=== PATIENT | female | born 1985 | race Caucasian/White ===

== ENCOUNTER 2016-07-19 17:27 | Emergency (ER) | payer OTHER ==
[~2016-07-19] VITALS: Ht 167.6 cm; Wt 59.0 kg
--- NOTE | 2016-07-19 17:47 | ED SYNCOPE COMPLAINT ---
History of Present Illness General Chief Complaint: Syncope and Near-Syncope Stated Complaint: S/P FALL / SYNCOPE THIS AM SENT IN [facility] CT AND LAB Source: patient, family, old records Exam Limitations: no limitations Vital Signs & Intake/Output Vital Signs & Intake/Output Vital Signs Date Time Temp Pulse Resp B/P Pulse O2 O2 Flow FiO2 Ox Delivery Rate 07/19 1917 97.5 70 18 113/67 100 07/19 1827 99 07/19 1745 99.1 81 16 121/75 100 Room Air Allergies Coded Allergies: MDX - PCN (penicillin) (PCN (PENICILLIN)) (RASH 05/08/12) Triage Note: PT STATES SHE PASSED OUT AND FELL DOWN STAIRS. PT DENIES CHEST PAIN DURING EPISODE. PT STATES SHE KIND OF KNEW WHAT WAS GOING ON DURING THE ENTIRE EPISODE AND FEELS LIKE SHE DID NOT HIT HER HEAD. Triage Nurses Notes Reviewed? yes Timing: single episode today Precipitating Factors: none Context: became dizzy/fainted Associated Symptoms: HEADACHE : No Patient currently breastfeeds: No HPI: This is a 30-year-old female with history of asthma reflux presents with her parents for evaluation after she had a questional syncopal episode this morning. The patient states that approximate 10 hours ago she got up out of bed to walk and go to the bathroom and take a shower first thing this morning. The patient states she got up she began to feel faint and proceeded to fall down the stairs. Patient is unsure of LOC however states that approximate retirement down the stairs she knew she was falling. Her mother was at the bases stairs when she did fall and states that she was immediately awake immediately after went right back up the stairs and took a shower. There is no slurred speech no change in vision. She states approximate hour later she began to have a frontal headache that she is had all day 3 out of 10 aching nonradiating which she has not taken anything. The patient denies any prodromal chest pain palpitations shortness of breath abdominal pain. She denies any other injuries from the fall no neck or back pain no arm or leg pain numbness or tingling no vision changes. No tinnitus dizziness or lightheadedness at this time. The patient reports a history of a similar episode and near syncopal episode in the shower approximately a month ago. Both episodes have occurred prior to her menses beginning. She denies any abnormal heavy vaginal bleeding. She denies chance of she does not smoke she reports to social alcohol use however none recently. No family history of sudden cardiac disease. (MARIN COTO) Past History Travel History Traveled to [place] past 21 day No Medical History Any Pertinent Medical History? see below for history Respiratory: asthma Gastrointestinal: GERD Surgical History Surgical History: none Psychosocial History What is your primary language Armenian Tobacco Use: Never used ETOH Use: occasional use Illicit Drug Use: denies illicit drug use Family History Hx Contributory? No (MARIN COTO) Review of Systems Review of Systems Constitutional: Reports: see HPI. All Other Systems: Reviewed and Negative Comments Review of systems: See HPI, All other systems negative. Constitutional, no chills no fever, no malaise HEENT: No visual changes no sore throat no congestion, no ear pain Cardiovascular: No chest pain , no palpitation , Skin, no rashes, no change in skin Respiratory: No dyspnea no cough no sputum GI: No nausea no vomiting, no diarrhea : No dysuria Muscle skeletal: No joint pain, no back pain, no neck pain, Neurologic: No numbness no confusion, headache Psych: No stress Heme/endocrine: No bruising no bleeding Immunology: No lymphadenopathy (MARIN COTO) Physical Exam Physical Exam General Appearance: well developed/nourished, no apparent distress, alert, awake Cranial Nerves: normal hearing, normal speech, PERRL Comments: Well-developed well-nourished person in no acute distress HEENT: Normal EENT exam; PERRL, EOMI, no nystagmus. HEAD is atraumatic. moist mucous membranes. No hemotympanum no raccoon eyes scalp is atraumatic nontender no scalp hematoma Neck: Supple, no midline or paracervical tenderness normal range of motion without pain or tenderness Back: Nontender, no CVA tenderness. Full range of motion Cardiovascular: Regular rate and rhythms no murmurs rubs or gallops, normal JVP Respiratory: Chest nontender.There were no bony deformities, no asymmetry. No respiratory distress. Patient speaking in full complete sentences. Breath sounds clear to auscultation bilaterally: NO W/R/R Abdomen: Soft, nontender nondistended, no appreciable organomegaly. Normal bowel sounds. No rebound/guarding, No appreciable enlargement of the abdominal aorta Extremity: No edema, full range of motion of extremities, normal and equal pulses bilaterally, 5 out of 5 strength noted to bilateral upper and lower extremities Neuro: Alert oriented x3, motor sensory normal, cranial nerves II through XII grossly intact. There were no obvious focal neurologic abnormalities. Skin: No appreciable rash on exposed skin, skin is warm and dry. Psych: Mood and affect is normal, memory and judgment is normal. Core Measures ACS in differential dx? Yes CVA/TIA Diagnosis: No Severe Sepsis Present: No Septic Shock Present: No (JANKI BRIDGES,MARIN) Progress Differential Diagnosis: AMI, aortic valve, hyperventilation, orthostatic syncope , pericardial tamponade, pulmonary embolus, ARRHYTHMIA, HYPOGLYCEMIA, , DEHYDRATION, ELECTROLYTE ABNORMALITY Plan of Care: Orders Procedure Date/time Status MISTAKE 07/19 1820 Active URINE 07/19 1812 Complete URINALYSIS 07/19 1812 Complete Telemetry/Metal Spinner 07/19 175 Active MAGNESIUM 07/19 175 Complete HUMAN BETA HCG SCREEN 07/19 1751 Complete D-DIMER 07/19 1751 Complete COMPREHENSIVE METABOLIC PANEL 07/19 1751 Complete CBC WITHOUT DIFFERENTIAL 07/19 1751 Complete EKG 07/19 172 Active Laboratory Tests 07/19/161828: Anion Gap 11, Estimated GFR > 60, BUN/Creatinine Ratio 21.4, Glucose 96, Calcium 10.0, Magnesium 1.9, Total Bilirubin 0.5, AST 22, ALT 30, Alkaline Phosphatase 56, Total Protein 8.3 H, Albumin 4.8, Globulin 3.5, Albumin/Globulin Ratio 1.4, Total Beta HCG NEGATIVE, D-Dimer < 200 07/19/161817: Urine Color STRAW, Urine Clarity CLEAR, Urine pH 6.0, Ur Specific [place] 1.010, Urine Protein NEG, Urine Ketones NEG, Urine Nitrite NEG, Urine Bilirubin NEG, Urine Urobilinogen 0.2, Ur Leukocyte Esterase NEG, Ur Microscopic EXAM NOT REQUIRED, Urine Hemoglobin NEG, Urine Glucose NEG, Urine Test NEGATIVE 07/19/161755: CBC w Diff NO MAN DIFF REQ, RBC 4.23, MCV 88.1, MCH 29.4, RDW 13.6, MPV 8.2, Gran % 50.5, Lymphocytes % 39.9, Monocytes % 6.4, Eosinophils % 2.2, Basophils % 1.0, Absolute Granulocytes 5.1, Absolute Lymphocytes 4.0 H, Absolute Monocytes 0.6, Absolute Eosinophils 0.2, Absolute Basophils 0.1, PUBS MCHC 33.4 Labs ordered old records reviewed patient is declining anything for headache would offer. chest x-ray ordered. Case and EKG reviewed with Dr. Bowling. On repeat evaluation patient is resting complain no apparent distress. Case and EKG were reviewed and a copy of the EKG was sent to Dr. Villa who after evaluating agrees with plan that the patient can go home he advised to have the patient call his office tomorrow morning to be seen in set up for a Holter and echocardiogram. I discussed with the patient and her family at the all of her lab results CT chest x-ray finding and EKG need for close follow-up on repeat evaluation patient reports her headache has resolved without any medication. They understand plan and they feel comfortable with plan, she will return anytime sooner with any concerns, orthostatics are negative (JANKI BRIDGES,MARIN) Diagnostic Imaging: Viewed by Me: Radiology Read, CT Scan. Discussed w/RAD: Radiology Read, CT Scan. Radiology Impression: PATIENT: ANA MARIA TOLEDO PRESENT AGE: 30 PATIENT ACCOUNT NO: [id number] : 87 LOCATION: [facility] ORDERING PHYSICIAN: MARIN BRIDGES SERVICE DATE: 07/19/16 EXAM TYPE: CAT - CT HEAD WO IV CONTRAST EXAMINATION: CT HEAD WITHOUT CONTRAST CLINICAL INFORMATION: Fall. Possible syncope. Assess for intracranial hemorrhage. COMPARISON: None. TECHNIQUE: Contiguous axial imaging was performed from the skull base to vertex without intravenous administration of contrast. DLP: 529.16 mGy-cm. FINDINGS: There is no evidence of acute intracranial hemorrhage or territorial infarction. No abnormal mass effect or midline shift is seen. Cochran to white matter differentiation is well preserved. No extra-axial fluid collections are identified. The ventricles are normal in size. There is no abnormal attenuation within the brain parenchyma. The osseous structures and soft tissues are normal; there are no fractures or large scalp contusions. The mastoid air cells and visualized portions of the paranasal sinuses are well aerated. IMPRESSION: 1. There are no acute intracranial findings. DICTATED BY: JAMES FOSTER MD DATE/TIME DICTATED:07/19/161910 BLENDING TANK TENDER HELPER:ANG DATE/TIME TRANSCRIBED:07/19/161910 CONFIDENTIAL, DO NOT COPY WITHOUT APPROPRIATE AUTHORIZATION. <Electronically signed in Other Vendor System> SIGNED BY: JAMES FOSTER MD 07/19/161918, PATIENT: ANA MARIA TOLEDO PRESENT AGE: 30 PATIENT ACCOUNT NO: [id number] : 87 LOCATION: [facility] ORDERING PHYSICIAN: MARIN BRIDGES SERVICE DATE: 07/19/16 EXAM TYPE: RAD - XRY-CHEST XRAY, PA AND LATERAL EXAMINATION: XR CHEST CLINICAL INFORMATION: Syncope. Assess for cardiomegaly. COMPARISON: None TECHNIQUE: AP and lateral views of the chest were obtained. FINDINGS: The lung marquez are well expanded and appear clear bilaterally. The cardiac silhouette is normal. There are no pleural effusions or pneumothorax. The central pulmonary vasculature is normal. The hilar regions appear normal. There is a mild dextroscoliosis in the thoracolumbar spine. There are no acute osseous findings. IMPRESSION: 1. There are no acute cardiopulmonary findings. DICTATED BY: JAMES FOSTER MD DATE/TIME DICTATED:07/19/161904 BLENDING TANK TENDER HELPER:ANG DATE/TIME TRANSCRIBED:1904 CONFIDENTIAL, DO NOT COPY WITHOUT APPROPRIATE AUTHORIZATION. < Electronically signed in Other Vendor System> SIGNED BY: JAMES FOSTER MD 1908 Initial ED EKG: NORMAL SINUS AT 90, t-WAVE INVERSIONS NOTED TO LEAD 3 AND Avf AND NONSPECIFIC st SEGMENT CHANGES NOTED TO THE LATERAL LEADS AXIS Rhythm Strip: normal sinus rhythm (MARIN COTO) Departure Departure Time of Disposition: 1957 Disposition: HOME OR SELF CARE Condition: Stable Clinical Impression Primary Impression: Syncope Referrals: KATARZYNA HOOKER,DUGLAS VILLA MD,W AMADEO Additional Instructions: Follow-up with your primary care physician as well as dog control officer Dr. Villa tomorrow. Return to emergency room at anytime sooner with any concerns Departure Forms: Customer Survey General Discharge Information (MARIN COTO) PA/SIDE PANEL PADDER Co-Sign Statement Statement: ED Attending supervision documentation- [] I saw and evaluated the patient. I have also reviewed all the pertinent lab results and diagnostic results. I agree with the findings and the plan of care as documented in the PA's/SIDE PANEL PADDER's documentation. [X] I have reviewed the ED Record and agree with the PA's/SIDE PANEL PADDER's documentation. [] Additions or exceptions (if any) to the PAs/SIDE PANEL PADDER's note and plan are summarized below: [] (JUAN HOOKER,JUAN)
[2016-07-19 18:07] LABS: ABSOLUTE BASOPHIL COUNT 0.1 /CUMM (0.0-0.2); ABSOLUTE EOSINOPHIL COUNT 0.2 /CUMM (0.0-0.7); ABSOLUTE GRANULOCYTE CT 5.1 /CUMM (1.4-6.5); ABSOLUTE MONOCYTE COUNT 0.6 /CUMM (0.10-0.60); EOSINOPHIL % 2.2 % (0-5); GRANULOCYTE % 50.5 % (42.2-75.2); HEMATOCRIT 37.3 % (37-47); MEAN CORPUSCULAR HGB 29.4 PG (27.0-31.0); MEAN CORPUSCULAR HGB CONC 33.4 G/DL (33.0-37.0); MEAN CORPUSCULAR VOLUME 88.1 FL (81.0-99.0); MEAN PLATELET VOLUME 8.2 FL (7.4-10.4); PLATELET COUNT 399 /CUMM (130-400); RBC DISTRIBUTION WIDTH 13.6 % (11.5-14.5); RED BLOOD CELL CT 4.23 /CUMM (4.20-5.40)
--- NOTE | 2016-07-19 19:09 | RADIOLOGY REPORT ---
EXAMINATION: XR CHEST CLINICAL INFORMATION: Syncope. Assess for cardiomegaly. COMPARISON: None TECHNIQUE: AP and lateral views of the chest were obtained. FINDINGS: The lung marquez are well expanded and appear clear bilaterally. The cardiac silhouette is normal. There are no pleural effusions or pneumothorax. The central pulmonary vasculature is normal. The hilar regions appear normal. There is a mild dextroscoliosis in the thoracolumbar spine. There are no acute osseous findings. IMPRESSION: 1. There are no acute cardiopulmonary findings.
[2016-07-19 19:18] VITALS: BP 113/67
--- NOTE | 2016-07-19 19:19 | CT SCAN REPORT ---
EXAMINATION: CT HEAD WITHOUT CONTRAST CLINICAL INFORMATION: Fall. Possible syncope. Assess for intracranial hemorrhage. COMPARISON: None. TECHNIQUE: Contiguous axial imaging was performed from the skull base to vertex without intravenous administration of contrast. DLP: 529.16 mGy-cm. FINDINGS: There is no evidence of acute intracranial hemorrhage or territorial infarction. No abnormal mass effect or midline shift is seen. Cochran to white matter differentiation is well preserved. No extra-axial fluid collections are identified. The ventricles are normal in size. There is no abnormal attenuation within the brain parenchyma. The osseous structures and soft tissues are normal; there are no fractures or large scalp contusions. The mastoid air cells and visualized portions of the paranasal sinuses are well aerated. IMPRESSION: 1. There are no acute intracranial findings.
== END 2016-07-19 20:21 ==
LOC: ERH 17:27
PROVIDERS: Physician Assistant Medical
DX: R55 Syncope and collapse (principal)
CPT/HCPCS: 81003; 81025; 93005; 93010